=== PATIENT | male | born 1965 | race African-American/Black ===

== ENCOUNTER 2017-07-03 13:16 | Emergency (ER) | payer OTHER | END 2017-07-03 13:45 | disposition home or self-care (01) | LOC: ER 13:16 | DX: J20.9 Acute bronchitis, unspecified (principal); J32.9 Chronic sinusitis, unspecified | CPT/HCPCS: 99283 ==

== ENCOUNTER 2018-01-13 15:18 | Emergency (ER) | payer OTHER ==
[~2018-01-13] VITALS: Ht 185.4 cm; Wt 99.8 kg
[~2018-01-13 15:18] MED LIST: AMOX1TAB61 PO; BENZ100C PO
[2018-01-13 15:20] VITALS: BP 130/82
[2018-01-13] MEDS ORDERED: ORPH100T PO (15:40)
[2018-01-13] MEDS ORDERED: IBUP-1007 PO (15:40)
[2018-01-13] MEDS ORDERED: PRED50TA PO (15:40)
--- NOTE | 2018-01-13 15:40 | PHYS DOC ---
Past Medical History Past Medical History: No Pertinent History Past Surgical History: No Surgical History Alcohol Use: Occasionally Drug Use: Marijuana Adult General Chief Complaint Chief Complaint: Neck Pain [facility] HPI Patient is a 52 year old male who presents with awoke this morning with left neck tightness that goes down into his shoulder. Rates his pain 8 out of 10 only when he moves. He has not taken any medications for this. He does not remember doing anything to hurt it yesterday and the neck did not hurt yesterday. He has no fever. He has no other symptoms. Patient states he does do a lot of lifting for his job. He rates it as a sharp shooting pain. The pain can be retreated when he lifts his left arm at the shoulder. Review of Systems Review of Systems Constitutional: Denies fever or chills [] Eyes: Denies change in visual acuity, redness, or eye pain [] HENT: Denies nasal congestion or sore throat [] Respiratory: Denies cough or shortness of breath [] Cardiovascular: No additional information not addressed in HPI [] GI: Denies abdominal pain, nausea, vomiting, bloody stools or diarrhea [] : Denies dysuria or hematuria [] Musculoskeletal: Left neck pain as sharp shooting to his shoulder. Denies back pain or joint pain [] Integument: Denies rash or skin lesions [] Neurologic: Denies headache, focal weakness or sensory changes [] Endocrine: Denies polyuria or polydipsia [] All other systems were reviewed and found to be within normal limits, except as documented in this note. Allergies Allergies Allergies Coded Allergies Type Severity Reaction Last Updated Verified No Known Drug Allergies 07/03/17 No Physical Exam Physical Exam Constitutional: Well developed, well nourished, no acute distress, non-toxic appearance. [] HENT: Normocephalic, atraumatic, bilateral external ears normal, oropharynx moist, no oral exudates, nose normal. [] Eyes: PERRLA, EOMI, conjunctiva normal, no discharge. [] Neck: Normal range of motion, no tenderness, supple, no stridor. [] Cardiovascular:Heart rate regular rhythm, no murmur [] Lungs & Thorax: Bilateral breath sounds clear to auscultation [] Abdomen: Bowel sounds normal, soft, no tenderness, no masses, no pulsatile masses. [] Skin: Warm, dry, no erythema, no rash. [] Back: No tenderness, no CVA tenderness. [] Extremities: Left neck tenderness, no cyanosis, no clubbing, neck ROM not intact , no edema. [] Neurologic: Alert and oriented X 3, normal motor function, normal sensory function, no focal deficits noted. [] Psychologic: Affect normal, judgement normal, mood normal. [] Current Patient Data Vital Signs Vital Signs Date Time Temp Pulse Resp B/P (MAP) Pulse Ox O2 Delivery O2 Flow Rate FiO2 01/13/18 15:20 97.7 88 18 130/82 (98) 99 Room Air 97.7 EKG EKG [] Radiology/Procedures Radiology/Procedures [] Course & Med Decision Making Course & Med Decision Making Patient is a 52 year old male who presents with awoke this morning with left neck tightness that goes down into his shoulder. Rates his pain 8 out of 10 only when he moves. He has not taken any medications for this. He does not remember doing anything to hurt it yesterday and the neck did not hurt yesterday. He has no fever. He has no other symptoms. Patient states he does do a lot of lifting for his job. He rates it as a sharp shooting pain. The pain can be retreated when he lifts his left arm at the shoulder. Alert and oriented. Vital warm and dry. Afebrile. Patient denies any other symptom. Patient has no numbness or tingling or chest pain or shortness of air. He is a mature with steady gait. Neurologically intact. There is pain with tenderness when I palpate his left neck. Patient is told to take ibuprofen, and I would give him a prescription for prednisone and Norflex. Patient should also try a heating pad on his neck. Patient is told if he struck begins having any other symptoms such as fever, chest pain, numbness or tingling, shortness of air or blurred vision or headache to return. [] Dragon Disclaimer Dragon Disclaimer This electronic medical record was generated, in whole or in part, using a voice recognition dictation system. Departure Departure Impression: Primary Impression: Neck tightness Disposition: 01 HOME, SELF-CARE Condition: STABLE Referrals: NO PCP (PCP) Patient Instructions: Muscle Strain Additional Instructions: Use heating pad, take medications as prescribed. Follow up with your primary care as soon as possible. Scripts Orphenadrine Citrate (ORPHENADRINE CITRATE) 100 Mg Tablet.er 1 TAB PO BID, #30 TAB 1 Refill Prov: SHAHBAZ TRACY APRN 01/13/18 Ibuprofen (IBUPROFEN) 600 Mg Tablet 600 MG PO PRN Q6HRS PRN for INFLAMMATION, #20 TAB Prov: SHAHBAZ TRACY APRN 01/13/18 Prednisone (PREDNISONE) 50 Mg Tablet 1 TAB PO DAILY, #5 TAB Prov: SHAHBAZ TRACY APRN 01/13/18 SHAHBAZ TRACY APRN Jan 13, 2018 15:40
== END 2018-01-13 15:43 | disposition home or self-care (01) ==
LOC: ER 15:18
DX: M43.6 Torticollis (principal)
CPT/HCPCS: 99283